=== PATIENT | male | born 1990 | race Two or more races ===

== ENCOUNTER 2016-06-21 15:37 | Emergency (ER) | payer SELFPAY ==
[~2016-06-21] VITALS: Ht 175.3 cm; Wt 68.5 kg
[2016-06-21 16:32] VITALS: BP 115/81
[2016-06-21 16:38] LABS: APPEARANCE,URINE CLEAR; KETONES,URINE NEGATIVE (NEGATIVE); LEUKOCYTE ESTERASE ,URINE 1+ (NEGATIVE); NITRITE,URINE NEGATIVE (NEGATIVE); PH,URINE 5 (4.5-8.0); PROTEIN,URINE 1+ (NEGATIVE); UROBILINOGEN,URINE NORMAL MG/DL (0.0-1.0)
[2016-06-21 16:47] LABS: RBC,URINE 0-2 /HPF (0 - 0)
[2016-06-21 16:48] LABS: BACTERIA,URINE FEW /HPF; SQUAMOUS EPITHELIAL CELL,UR OCCASIONAL /LPF (NONE/OCC)
[2016-06-21] MEDS ORDERED: Azithromycin 250mg tab ORAL ONE (17:00)
[2016-06-21] MEDS ORDERED: Lidocaine 1% MPF 10mg/ml 5ml ONE (17:07)
--- NOTE | 2016-06-21 17:33 | Emergency Room Report ---
History of Present Illness General Chief Complaint: Male Urogenital Problems Source: Patient (BEBO HOLM) Present Illness HPI The patient is a 25-year-old male presenting for possible STD exposure. The patient states that he has been sexually active with multiple female partners recently and is concerned that he may been exposed to an STD. The patient does not know for certain if any of the partners have any infections. The patient also noticed a small bump at the base of the penis this morning. The patient denies any pain and denies dysuria, hematuria, testicular pain, flank pain, fever, chills, abdominal pain (BEBO HOLM) Allergies: Coded Allergies: No Known Allergies (Unverified , 06/21/16) Patient History Past Medical History: see triage record Pertinent Family History: none Reviewed Nursing Documentation: PMH: Agreed, PSxH: Agreed (BEBO HOLM) Review of Systems All Other Systems: negative except mentioned in HPI (BEBO HOLM) Physical Exam Vital Signs Date Time Temp Pulse Resp B/P Pulse Ox O2 Delivery O2 Flow Rate FiO2 06/21/16 16:04 98.4 82 17 115/81 95 Room Air Sp02 EP Interpretation: reviewed, normal General Appearance: no apparent distress, alert, GCS 15, non-toxic Head: normocephalic, atraumatic Eyes: bilateral eye PERRL, bilateral eye normal inspection ENT: hearing grossly normal, normal pharynx, no angioedema, normal voice Musculoskeletal: back normal, gait/station normal, normal range of motion, non- tender Neurologic: alert, oriented x3, responsive, motor strength/tone normal, sensory intact, speech normal Psychiatric: judgement/insight normal, memory normal, mood/affect normal, no suicidal/homicidal ideation Skin: normal color, well hydrated, normal turgor, other - There is one papule at the base of the penis with central puncture. Lymphatic: no adenopathy (BEBO HOLM) Medical Decision Making PA Attestation Dr. Yu is my supervising physician. Patient management was discussed with my supervising physician (BEBO HOLM) Diagnostic Impression: Primary Impression: Possible exposure to STD ER Course The patient is a 25-year-old male presenting for possible STD exposure. The patient denies any symptoms. Differential diagnosis considered: STD, urethritis, orchitis, urinary tract infection Physical exam: Afebrile. No current distress. Abdomen is soft and nontender. There is a small, erythematous papule at the base of the penis with a central puncture. No bleeding or discharge. Nontender. No other rash or papules. Penis is nontender. Testicles are nontender. rubbery. No edema. Urinalysis shows white blood cells with leukocyte esterase. Negative nitrites. The patient will be treated with azithromycin and Rocephin. ER precautions are given. Patient will followup with family care physician. The patient states that he will call back for gonorrhea and chlamydia results. Laboratory Tests Test 06/21/16 16:24 Urine Color Yellow Urine Appearance Clear Urine pH 5 (4.5-8.0) Urine Specific [place] 1.020 (1.005-1.035) Urine Protein 1+ (NEGATIVE) H Urine Glucose (UA) Negative (NEGATIVE) Urine Ketones Negative (NEGATIVE) Urine Occult Blood 1+ (NEGATIVE) H Urine Nitrite Negative (NEGATIVE) Urine Bilirubin Negative (NEGATIVE) Urine Urobilinogen Normal MG/DL (0.0-1.0) Urine Leukocyte Esterase 1+ (NEGATIVE) H Urine RBC 0-2 /HPF (0 - 0) H Urine WBC 10-15 /HPF (0 - 0) H Urine Squamous Epithelial Cells Occasional /LPF Urine Bacteria Few /HPF (NONE) Lab Results Impression There are 10-15 white blood cells. Negative nitrites. (BEBO HOLM P.AFiona) Last Vital Signs Date Time Temp Pulse Resp B/P Pulse Ox O2 Delivery O2 Flow Rate FiO2 06/21/16 16:32 98.4 78 17 115/81 95 Room Air Status: improved (BEBO HOLM P.A.) Disposition: HOME, SELF-CARE Condition: Improved Referrals: NOT CHOSEN IPA/MD,REFERRING (PCP) Patient Instructions: Sexually Transmitted Disease Additional Instructions: I discussed my findings with the patient. All questions and concerns have been answered. Treatment and medication compliance have been addressed. I advised the patient that they need to follow up with PMD in 3-5 days. Return to ED if symptoms worsen, new symptoms arise, or if needed for any reason. Patient verbalized understanding of discharge instructions. BEBO HOLM Jun 21, 2016 17:33 Dhiraj Yu M.D. Jun 23, 2016 04:29
[2016-06-21 17:55] VITALS: BP 115/81
== END 2016-06-21 17:55 | disposition home or self-care (01) ==
LOC: EMR 16:00
DX: Z20.2 Contact with and (suspected) exposure to infections with a predominantly sexual mode of transmission (principal)
CPT/HCPCS: 81003; 87086; 96372; 99283; J0696

== ENCOUNTER 2019-10-07 20:55 | Emergency (ER) | payer MEDICAID ==
[~2019-10-07] VITALS: Ht 177.8 cm; Wt 69.9 kg
[2019-10-07 21:06] VITALS: BP 122/75
[2019-10-07] MEDS ORDERED: Azithromycin 250mg tab ORAL ONE (21:30)
[2019-10-07] MEDS ORDERED: Lidocaine 1% MPF 10mg/ml 5ml INJ ONE (21:30)
[2019-10-07 22:08] VITALS: BP 128/78
--- NOTE | 2019-10-08 23:07 | Emergency Room Report ---
History of Present Illness General Chief Complaint: Male Urogenital Problems Source: Patient Present Illness HPI Patient presents with complaints of penile discharge reports that he thinks he might have an STD denies any pain with urination denies any rash Denies any fevers or chills denies any testicular pain denies any back or flank pain denies any dysuria frequency Denies any trauma patient does report sexual contact with new partner Allergies: Coded Allergies: No Known Allergies (Unverified , 06/21/16) COVID-19 Screening Contact w/high risk pt: No Recent Travel to affected area: No Experienced COVID-19 symptoms?: No COVID-19 Testing performed H[employer]ULT[employer] FARMER: No Patient History Past Medical History: see triage record Reviewed Nursing Documentation: PMH: Agreed; PSxH: Agreed Nursing Documentation-PMH Past Medical History: No History, Except For Review of Systems All Other Systems: negative except mentioned in HPI Physical Exam Vital Signs Date Time Temp Pulse Resp B/P (MAP) Pulse Ox O2 Delivery O2 Flow Rate FiO2 10/06/20 20:57 98.1 94 17 126/73 (90) 98 Room Air Sp02 EP Interpretation: reviewed, normal General Appearance: well appearing, no apparent distress Head: normocephalic, atraumatic Eyes: bilateral eye PERRL, bilateral eye EOMI ENT: hearing grossly normal, normal pharynx, TMs + canals normal, uvula midline Neck: full range of motion, supple, no meningismus, no bony tend Respiratory: lungs clear, normal breath sounds, no rhonchi, no respiratory distress, no retraction, no accessory muscle use Cardiovascular #1: normal peripheral pulses, regular rate, rhythm, no edema, no gallop, no JVD, no murmur Gastrointestinal: normal bowel sounds, non tender, soft, no mass, no organomegaly, non-distended, no guarding, no hernia, no pulsatile mass, no rebound Genitourinary: no CVA tenderness, penis normal Musculoskeletal: normal inspection Neurologic: motor strength/tone normal, selenium plant operator III-XII nml as tested, oriented x3 , sensory intact, responsive Psychiatric: mood/affect normal Skin: no rash Lymphatic: normal inspection, no adenopathy Medical Decision Making Diagnostic Impression: Primary Impression: urethritis ER Course Multiple differentials entertained including but not limited to UTI, urethritis , including GC chlamydia, HIV syphilis Patient does not have any rash he does have fairly clear discomfort inconsistent with likely chlamydia and gonorrhea He is treated symptomatically here in the ER and will have initial conservative outpatient trial Last Vital Signs Date Time Temp Pulse Resp B/P (MAP) Pulse Ox O2 Delivery O2 Flow Rate FiO2 10/07/19 22:08 98.3 73 18 128/78 98 Room Air Status: improved Disposition: HOME, SELF-CARE Condition: Improved Referrals: NOT CHOSEN IPA/,REFERRING (PCP) [facility] Zabrina Meza [facility]. [facility] Patient Instructions: Urethritis, Adult Additional Instructions: Patient is provided with the discharge instructions notified to follow up with primary doctor in the next 2-3 days otherwise return to the er with any worsening symptoms. Please note that this report is being documented using Perfect Memory technology. This can lead to erroneous entry secondary to incorrect interpretation by the dictating instrument. Kris Bernardo DO October 08, 2019 23:07
== END 2019-10-07 22:08 | disposition home or self-care (01) ==
LOC: EMR 21:47
DX: N34.2 Other urethritis (principal)
CPT/HCPCS: 96372; 99283